=== PATIENT | female | born 1970 | race Two or more races ===

== ENCOUNTER 2021-06-06 12:28 | Inpatient (IN) | payer SELFPAY ==
[~2021-06-06] VITALS: Ht 162.6 cm; Wt 62.8 kg
--- NOTE | 2021-06-06 13:10 | NUR ---
pt is refusing to have vital signs taken.
--- NOTE | 2021-06-06 13:15 | NUR ---
[id number]/PD from [facility], verbally combative, uncooperative pilot captain. PT REFUSING TO ANSWER QUESTIONS. PT HYPERVERBAL TALKING TO SELF. RR EVEN & UNLABORED, NAD NOTED AT THIS TIME. AWAITING EVAL BY ERMD. KERR AT BS.
--- NOTE | 2021-06-06 15:42 | NUR ---
SS Consult: SW attempted to meet with pt. for interview. Pt. Is a Black female. Pt. does not demonstrate adequate insight to the reason for hospitalization. Per pt., she is not sick, and nothing is wrong with her. Per pt., she was brought to hospital by ambulance. Pt. reported that she does not know why she is hospitalized. SW asked for pt.'s name and pt. stated: "You can call me anything you want." SW asked for age and , pt. reported that she does not have a memory. Pt. was oriented x2, and alert. During interview, pt. was capable of following directions, made appropriate eye-contact, but appeared unkept. Evidenced by: dirty hospital gown, poor hygiene. Pt. reported having no memory, but pt. was cooperative with a few questions. SW explored pt.'s Hx of mental health and substance abuse. Pt. reported no Hx of mental health, SI/HI, denied AH/VH, paranoia or delusions. SW explored pt.'s living situation. Per pt., [facility] [no contact information provided]. Pt. reported that she can go there whenever needs to. Per pt., she will return to [facility] once she leaves the hospital. Plan: SW provided available resources and pt. denied at the time. SW left homeless resources and homeless waiver in pt.'s chart. Once discharge, per pt., she wants to return to [facility]. Resources Provided: Year-round shelters: [facility] [address] [place] [place] [address] ; [facility] [address] [place] [address]; [facility] Eybdcry[address] [facility] [address] Winter Shelters: Joel Scott Provider: [facility] [place] Address: [address] [place], [address] # of Beds: 47 Population Served: [facility] 6 | [facility] Hilda Hong [place] Provider: [facility] Address: [address] [facility], [address] # of Beds: 66 Population Served: [employer] [employer] [place] Provider: [facility] Address: [address] [facility], [address] # of Beds: 56 Population Served: [facility] Lazaro Scott Provider: [facility] Address: [address] [facility], [address] # of Beds: 49 Population Served: [facility] SPA 8 | [facility] Provider: [facility] Address: [address] [facility], [address] # of Beds: 37 Population Served: [facility] Hygiene: [facility]: [address] [facility] ; [facility] [address] [facility] ; [facility] [address] [place] . Food Resources: [place] [facility] at [facility]- [address] [facility] [place] [facility] [place]; Meet Each Need with Dignity ([facility]) [address] [facility]; [facility] Food Pantry 4[address] [facility]; [facility] 8535 [facility]. Mental Health resources provided: [facility] [address] [place], [place] [phone] ; [facility] Mental Health [place] [address], [place] [address] ; Candy Rust [facility] Mental Health [facility] [address] [place], [place] [phone] ; [facility] [address] [place], [place] [phone] Healthcare Clinics: [facility] [address], [address] [place]. [place] ; [facility] [address] [facility] [address] [place] [address]; [facility] [address] [place] [address] [phone] Counseling--Outpatient [facility] [address], [address] [place], [place] [address] (Specializes in in-depth psychotherapy for emotional distress: anxiety, depression, interpersonal conflicts, life transitions, childhood abuse) [facility] [address] [place], [place] [phone] (Assist with solving problem marital difficulties, separation & divorce, aging parents, & grief, chronic & terminal illness) [facility] [address] [place] [address] (Deal with loss & grief, anxiety, marital difficulties) Homebound/Mental Health Services [address] [facility] [address] [place] [address] (Provide in-home mental services to people who are incapable of leaving their homes) [facility] for Needs of the Elderly Senior Service/Resource Center [address] [place] [address] [facility] [address] [place], [place] [address] PSYCHIATRIC OUTPATIENT SERVICES [facility] Partial Hospitalization and Intensive Outpatient Program (Managed Care and [place] Only)[address] [facility] [phone] [facility] Partial Hospitalization and Outpatient Ybpmnko[address] [facility] [address] [place], [place] [phone] [facility] Nms[address] [facility] [address] [place], [place] [phone] [facility] Partial Hospitalization and Outpatient Pbqxkym84586 [place], [phone] Substance Abuse resources provided included: [facility] Substance Abuse Self-Helpline (SASH) ; CRI [facility]LP [address] [facility] [phone] ; [facility] [address] [facility] [address] ; [facility] [address] [facility] [address] ; [facility] [address] [facility] [address] ; [facility] [address] G[address] Wu [facility] [address] ; [facility] 909 [facility] [phone] ; [facility] Substance Abuse Helpline(SAS)[facility] ; [facility] ; [facility] [place]; [facility] [place]; [facility] [place]; [facility] Gato Wu; [facility] [place]; [facility] [place]; [facility] [place]; [facility]'s [place], [facility]. [place]; Alcoholics Anonymous -SFV; Zu-Glmg-Yhkqrxn ; Marijuana Anonymous -SFV; Narcotics Anonymous www.na.org;
--- NOTE | 2021-06-06 15:50 | NUR ---
LABS DRAWN BY BOAT CARPENTER MECHANIC & SENT TO LAB.
[2021-06-06 16:24] LABS: BASOPHILS # (AUTO) 0.1 K/uL (0.0-0.2); BASOPHILS % (AUTO) 0.8 % (0.0-2.0); EOSINOPHILS % (AUTO) 0.3 % (0.0-6.0); HEMATOCRIT 36 % (33-45); HEMOGLOBIN 11.5 g/dL (11.5-14.8); LYMPHOCYTES # (AUTO) 2.3 K/uL (0.8-4.8); LYMPHOCYTES % (AUTO) 30.7 % (20.0-44.0); MEAN CORPUSCULAR HGB CONC 32 g/dl (31.0-36.0); MEAN CORPUSCULAR VOLUME 78 fL (82-100); MONOCYTES # (AUTO) 0.9 K/uL (0.1-1.30); MONOCYTES % (AUTO) 12.2 % (2.0-12.0); NEUTROPHILS # (AUTO) 4.1 K/uL (1.8-8.9); PLATELET COUNT (AUTO) 211 K/uL (150-450); RED BLOOD CELL COUNT(AUTO) 4.61 MIL/uL (4.0-5.2); WHITE BLOOD COUNT (AUTO) 7.4 K/uL (4.3-11.0)
[2021-06-06] MEDS ORDERED: OLANZAPINE 5 MG TABLET PO ONE (16:30)
[2021-06-06] MEDS ORDERED: OLANZAPINE 10 MG VIAL IM ONE ×2 (16:30→17:55)
[2021-06-06 16:45] LABS: ALANINE AMINOTRANSFERASE 31 U/L (12-78); ALCOHOL, BLOOD < 3 mg/dL (0-0); ALKALINE PHOSPHATASE 94 U/L (46-116); ASPARTATE AMINOTRANSFERASE 28 U/L (15-37); BILIRUBIN,DIRECT 0.1 mg/dL (0.0-0.2); BILIRUBIN,TOTAL 0.4 mg/dL (0.2-1.0); CALCIUM, SERUM 9.9 mg/dL (8.5-10.1); CARBON DIOXIDE 30 mmol/L (21-32); CHLORIDE 103 mmol/L (98-107); CREATININE 1.1 mg/dL (0.6-1.3); GLUCOSE 99 mg/dL (74-106); POTASSIUM 4.9 mmol/L (3.5-5.1); SODIUM SERUM 144 mmol/L (136-145); TOTAL PROTEIN, SERUM 8.3 g/dL (6.4-8.2); UREA NITROGEN, BLOOD 24 mg/dL (7-18)
[2021-06-06 16:49] LABS: ACETAMINOPHEN < 0 ug/ml (10-30)
--- NOTE | 2021-06-06 18:15 | NUR ---
PT CALM & COOPERATIVE AT THIS TIME. WILL CONT TO MONITOR.
--- NOTE | 2021-06-07 00:31 | NUR ---
URINE COLLECTED AND SENT TO LAB
[2021-06-07 01:24] LABS: BILIRUBIN,URINE NEGATIVE (NEGATIVE); COLOR,URINE YELLOW (YELLOW); LEUKOCYTE ESTERASE ,URINE LARGE (NEGATIVE); NITRITE, URINE NEGATIVE (NEGATIVE); PROTEIN,URINE NEGATIVE (NEGATIVE); UGLUCOSE NEGATIVE (NEGATIVE); UROBILINOGEN,URINE 0.2 EU/dL (0.2)
[2021-06-07 01:55] LABS: BACTERIA,URINE Many /HPF (None Seen); SQUAMOUS EPITHELIAL CELL,UR Few /HPF (None Seen); WBC,URINE 21-50 /HPF (0-3)
[2021-06-07] MEDS ORDERED: CEPHALEXIN MONOHYDRATE 500 MG CAPSULE PO SCH (06:30)
[2021-06-07] MEDS ORDERED: CEPHALEXIN MONOHYDRATE 500 MG CAPSULE PO ONE (08:00)
--- NOTE | 2021-06-07 08:30 | NUR ---
THE PATIENT IS RECEIVED ALERT AND ORIENTED X2. DENIES PAIN. IN ROOM AIR AND DENIES SOB. RESPIRATION REGULAR AND UNLABORED. WILL CONTINUE TO MONITOR THE PATIENT.
--- NOTE | 2021-06-07 10:17 | NUR ---
PSYCH CONSULT REQUEST: LAST faxed facesheet & clincials to [facility] for psych consult. Pt. has not provided indetifying information and is on a [address] Tx[address] Dr. Richards will see pt.
--- NOTE | 2021-06-07 10:28 | NUR ---
PER PROFESSOR OF VOICE KAITLYNN, DR KOVACS WILL SEE PT
--- NOTE | 2021-06-07 11:30 | NUR ---
DR KOVACS AT THE BEDSIDE
[2021-06-07] MEDS ORDERED: HALOPERIDOL LACTATE INJ 5 MG/ML VIAL ONE (11:58)
[2021-06-07] MEDS ORDERED: OLANZAPINE 5 MG TABLET ONE (11:58)
[2021-06-07] MEDS: OLANZAPINE ZYDIS 5 MG TAB.RAPDIS PO SCH ×2 (12:00→17:00)
--- NOTE | 2021-06-08 06:07 | NUR ---
PT SLEEPING IN GURNEY. NO SIGNS OF DISTRESS NOTED. PT STILL UNCOOPERATIVE WHEN ASKING FOR NAME, HOWEVER CALM AND NON AGGRESSIVE WILL CONT TO MONITOR PT.
[2021-06-08] MEDS: OLANZAPINE ZYDIS 5 MG TAB.RAPDIS PO SCH ×2 (09:00→17:00)
[2021-06-08] MEDS ORDERED: HALOPERIDOL LACTATE INJ 5 MG/ML VIAL ONE ×2 (10:20→17:59)
[2021-06-08] MEDS: HALOPERIDOL LACTATE INJ 5 MG/ML VIAL IM PRN ×2 (10:25→18:04)
[2021-06-08] MEDS ORDERED: MAG HYDROX/AL HYDROX/SIMETH 30 ML UDC PO PRN (15:30)
[2021-06-08] MEDS ORDERED: ACETAMINOPHEN 325 MG TABLET PO PRN (15:30)
[2021-06-08] MEDS ORDERED: ONDANSETRON HCL/PF 4 MG/2 ML VIAL IVP PRN (15:30)
[2021-06-08] MEDS ORDERED: MAGNESIUM HYDROXIDE 30 ML UDC PO PRN (15:30)
[2021-06-08] MEDS ORDERED: Z GUARD REMEDY 2 OZ OINT TP PRN (15:30)
[2021-06-08] MEDS ORDERED: IV LR 1000 ML 1,000 ML IV ONE (15:30)
[2021-06-08] MEDS ORDERED: CEFTRIAXONE 1 G in IV D5W 50 ML IV ONE (15:30)
[2021-06-08] MEDS ORDERED: LORAZEPAM INJ 2 MG/ML VIAL IV PRN (15:30)
[2021-06-08 20:00] VITALS: BP 179/124
[2021-06-08] MEDS: CEFTRIAXONE 1 G in IV D5W 50 ML IV SCH (20:32)
[2021-06-09 04:00] VITALS: BP 123/75
--- NOTE | 2021-06-09 05:28 | NUR ---
RN note Admitted a 50 yr old from ER via stretcher accompanied by 2 staff in stable condition. Has a diagnosis of UTI. Vital signs wnl. No distress noted. On room air tolerating well. Alert and oriented. Verbally able to communicate needs. No complaint of pain or discomfort. Bed bath given. Needs attended. Kept clean and dry. Will endorse to next shift for continuity of care.
[2021-06-09 06:40] LABS: BASOPHILS % (AUTO) 0.2 % (0.0-2.0); EOSINOPHILS % (AUTO) 0.8 % (0.0-6.0); HEMATOCRIT 33 % (33-45); HEMOGLOBIN 10.7 g/dL (11.5-14.8); LYMPHOCYTES # (AUTO) 1.2 K/uL (0.8-4.8); LYMPHOCYTES % (AUTO) 23.3 % (20.0-44.0); MEAN CORPUSCULAR HGB CONC 33 g/dl (31.0-36.0); MEAN CORPUSCULAR VOLUME 77 fL (82-100); MONOCYTES # (AUTO) 0.7 K/uL (0.1-1.30); MONOCYTES % (AUTO) 13.1 % (2.0-12.0); NEUTROPHILS # (AUTO) 3.3 K/uL (1.8-8.9); NEUTROPHILS % (AUTO) 62.6 % (43.0-81.0); PLATELET COUNT (AUTO) 198 K/uL (150-450); RED BLOOD CELL COUNT(AUTO) 4.22 MIL/uL (4.0-5.2); WHITE BLOOD COUNT (AUTO) 5.2 K/uL (4.3-11.0)
[2021-06-09 07:00] LABS: CALCIUM, SERUM 9.1 mg/dL (8.5-10.1); POTASSIUM 3.7 mmol/L (3.5-5.1)
--- NOTE | 2021-06-09 07:30 | NUR ---
MS BOLIVAR OPENING NOTES RECEIVED PATIENT ON BED, AWAKE AND A/O X4. ON ROOM AIR TOLERATING WELL. NO SOB NOTED. NOT IN DISTRESS. WITH NO COMPLAINTS OF PAIN OR DISCOMFORT AT THIS TIME. WITH IV ACCESS AT LEFT HAND G22, SALINE LOCKED, PATENT AND INTACT. DUE MEDS GIVEN. SAFETY MEASURES IN PLACE. WITH SITTER. CALL LIGHT WITHIN REACH. BED ON LOWEST AND LOCKED POSITION, SIDE RAILS UP X2. WILL ENDORSE TO NEXT SHIFT FOR CHANDLER. Addendum: 06/09/21 at 1909 by GREG URENA RN ERROR
--- NOTE | 2021-06-09 07:30 | NUR ---
MS RN OPENING NOTES RECEIVED PATIENT ON BED, AWAKE AND A/O X4. ON ROOM AIR TOLERATING WELL. NO SOB NOTED. NOT IN DISTRESS. WITH NO COMPLAINTS OF PAIN OR DISCOMFORT AT THIS TIME. WITH IV ACCESS AT LEFT HAND G22, SALINE LOCKED, PATENT AND INTACT. SAFETY MEASURES IN PLACE. WITH SITTER. CALL LIGHT WITHIN REACH. BED ON LOWEST AND LOCKED POSITION, SIDE RAILS UP X2. WILL CONTINUE TO MONITOR.
[2021-06-09] MEDS: OLANZAPINE ZYDIS 5 MG TAB.RAPDIS PO SCH ×2 (09:00→17:00)
[2021-06-09 12:00] VITALS: BP 130/78
[2021-06-09] MEDS: CEFTRIAXONE 1 G in IV D5W 50 ML IV SCH (17:37)
--- NOTE | 2021-06-09 19:07 | NUR ---
MS RN CLOSING NOTES RECEIVED PATIENT ON BED, AWAKE AND A/O X4. ON ROOM AIR TOLERATING WELL. NO SOB NOTED. NOT IN DISTRESS. WITH NO COMPLAINTS OF PAIN OR DISCOMFORT AT THIS TIME. WITH IV ACCESS AT LEFT HAND G22, SALINE LOCKED, PATENT AND INTACT. DUE MEDS GIVEN. SAFETY MEASURES IN PLACE. WITH SITTER. CALL LIGHT WITHIN REACH. BED ON LOWEST AND LOCKED POSITION, SIDE RAILS UP X2. WILL ENDORSE TO NEXT SHIFT FOR CHANDLER.
--- NOTE | 2021-06-09 19:10 | NUR ---
RN NOTES RECEIVED REPORT FROM MORNING NURSE. PATIENT IN BED A/O X 4. WITH IV ACCESS AT L HAND PATENT FLUSHES WELL. NO SOB, NO DISTRESS NOTED. HOB ELEVATED, CALL LIGHT WITHIN REACH, BED ON LOWEST POSITION AND LOCKED. WILL MONITOR CLOSELY.
[2021-06-09 20:00] VITALS: BP 125/75
[2021-06-10 04:00] VITALS: BP 145/84
--- NOTE | 2021-06-10 06:31 | NUR ---
RN NOTES PATIENT REMAINS STABLE THE WHOLE SHIFT, NO SIGNIFICANT CHANGES IN HEALTH CONDITION THIS SHIFT. PATIENT A/O X 4 ABLE TO MAKE NEEDS KNOWN. ON ROOM AIR TOLERATING WELL SATURATION OF 99%. ALL SAFETY MEASURES IN PLACE AT ALL TIMES, HOB ELEVATED, BED ON LOWEST POSITION AND LOCKED. CALL LIGHT WITHIN REACH. ALL NEEDS ATTENDED. FREQUENT VISUAL MONITORING RENDERED. ENDORSED
[2021-06-10 06:58] LABS: CALCIUM, SERUM 8.7 mg/dL (8.5-10.1); CREATININE 0.8 mg/dL (0.6-1.3); POTASSIUM 4.1 mmol/L (3.5-5.1)
[2021-06-10 07:24] LABS: BASOPHILS % (AUTO) 0.4 % (0.0-2.0); EOSINOPHILS % (AUTO) 1.7 % (0.0-6.0); HEMATOCRIT 31 % (33-45); HEMOGLOBIN 10.4 g/dL (11.5-14.8); LYMPHOCYTES # (AUTO) 1.5 K/uL (0.8-4.8); LYMPHOCYTES % (AUTO) 38.1 % (20.0-44.0); MEAN CORPUSCULAR HGB CONC 33 g/dl (31.0-36.0); MEAN CORPUSCULAR VOLUME 77 fL (82-100); MONOCYTES # (AUTO) 0.7 K/uL (0.1-1.30); MONOCYTES % (AUTO) 16.5 % (2.0-12.0); NEUTROPHILS # (AUTO) 1.8 K/uL (1.8-8.9); NEUTROPHILS % (AUTO) 43.3 % (43.0-81.0); PLATELET COUNT (AUTO) 196 K/uL (150-450); RED BLOOD CELL COUNT(AUTO) 4.07 MIL/uL (4.0-5.2); WHITE BLOOD COUNT (AUTO) 4.1 K/uL (4.3-11.0)
--- NOTE | 2021-06-10 07:55 | NUR ---
RN OPENING NOTE RECEIVED PT IN BED. PT IS ON RA SAT 98% WITHOUT SIGNS OF LABORED BREATHING OR DISTRESS, PT IS A/OX3 WITH A DIAPER, PT HAS L UA 22G IV ACCESS PATENT AND FLUSHING WELL, SAFETY MEASURES ARE IN PLACE WITH BED LOCKED IN LOWEST POSITION X2 GUARD RAILS UP, WILL CONTINUE TO MONITOR THIS SHIFT.
[2021-06-10] MEDS: OLANZAPINE ZYDIS 5 MG TAB.RAPDIS PO SCH ×2 (09:23→16:03)
[2021-06-10 10:44] LABS: EOSINOPHILS % (MANUAL) 3 % (0-4); LYMPHOCYTES % (MANUAL) 39 % (16-48); MONOCYTES % (MANUAL) 13 % (0-11.0); NEUTROPHILS % (MANUAL) 45 (42-76)
[2021-06-10 12:00] VITALS: BP 145/84
--- NOTE | 2021-06-10 13:16 | NUR ---
patient pull iv out,refused to be reinserted,dr. xiong notified and ordered to dc clyde meds,telma no iv. Addendum: 06/10/21 at 1601 by VINAY GUZMAN RN NURSE NOTE
--- NOTE | 2021-06-10 19:26 | NUR ---
RN CLOSING NOTE RECEIVED PT IN BED. PT IS ON RA SAT 97% WITHOUT SIGNS OF LABORED BREATHING OR DISTRESS, PT IS A/OX2 WITH A DIAPER, SAFETY MEASURES ARE IN PLACE WITH BED LOCKED IN LOWEST POSITION X2 GUARD RAILS UP, WILL ENDORSE TO HOLISTIC PULSER NURSE FOR CHANDLER.
--- NOTE | 2021-06-10 19:46 | NUR ---
IN BED ALERT AND ORIENTATED ASKING ME IF i WAS TO BE HER NURSE FOR THE NIGHT. SHE IS SMILING AND REACHED OUT TO TOUCH MY ARM WHEN I WAS STANDING NEXT TO HER BED. SHE IS SMILING AND SPEECH CLEAR NOTED NO HEPLOCK AM NURSE COMMENTED SHE PULLED IT OUT AND DOESNT WANT THE NEEDLE IN HER ARM BED ALARM ON
[2021-06-10 20:00] VITALS: BP 116/77
--- NOTE | 2021-06-11 03:48 | NUR ---
CLOSING NOTES: ALERT AND ORIENTATED TO KNOWING IT IS NIGHT TIME AND SHE IS IN THE HOSPITAL AND I AM HER NURSE. SHE IS COOPERATIVE USING THE CALL LIGHT AP[PRIOP WHEN NEED TO CALL THE NURSE FOR ASSIST SHE USES THE BEDPAN AND AT TIMES INCONTINENT' SHE LAUGHS IN APPROPIATLY AND HEARD HER TALKING AND HAVING A CONVERSATION WHEN NO ONE IS IN THE ROOM NO iv ACCESS PATIENT REFUSING .
[2021-06-11 04:00] VITALS: BP 163/108
--- NOTE | 2021-06-11 07:22 | NUR ---
RN OPENING NOTES; RECEIVED PT IN BED, A/OX2, PT HAS BEEN HEARD TALKING TO SELF. PATIENT HAS A PLEASANT DEMEANOR. ABLE TO MAKE NEEDS KNOW. NO SOB, NO DISTRESS, NO C/O PAIN AT THIS TIME. ALL SAFETY MEASURES RENDERED, BED LOCKED, IN LOWEST POS. WITH CALL LIGHT WITHIN REACH.
[2021-06-11] MEDS: OLANZAPINE ZYDIS 5 MG TAB.RAPDIS PO SCH ×3 (08:02→16:15)
--- NOTE | 2021-06-11 08:06 | NUR ---
RN NOTES; PT REFUSED MORNING MEDICATION OLANZAPINE. EDUCATED REGARDING BENEFITS TO MEDICATION. NO AVAIL. PT CONTINUED TO REFUSED. WILL CONTINUE TO MONITOR.
[2021-06-11 12:00] VITALS: BP 181/105
--- NOTE | 2021-06-11 14:18 | NUR ---
"SW attempted to meet with pt. to provide resources. Pt. refused to speak or answer any questions. Pt. did not make eye-contact or acknowledge SW. SW spoke with pt.s nurse, and he mentioned that pt. is refusing everything. SW left homeless resources, homeless waiver, and tap card in pt.s chart. SW printed out directions on how to get to [facility], if pt. would want to go there after discharged. Resources Provided: Year-round shelters: [place] [address] [place] [place] [address] ; [facility] [address] [place] [address]; [facility] Lrymxpf2784 [facility] [address] Winter Shelters: Joel Bae [place] Provider: [facility] [place] Address: [address] [place], [address] # of Beds: 47 Population Served: [facility] 6 | [facility]ilda [facility] [place] Provider: [facility] Address: [address], [address] # of Beds: 66 Population Served: [facility] Holla@Me [place] Provider: [facility] Address: [address] [facility], [address] # of Beds: 56 Population Served: [facility] Lazaro [place] Provider: [facility] Address: [address] [place] [address], [address] # of Beds: 49 Population Served: [facility] 8 | [facility] Provider: [facility] Serve Address: [address] [facility], [address] # of Beds: 37 Population Served: Adam Hygiene: [place] [facility]: [address] [address] ; [facility] [facility] [address] [facility] ; [facility] [address] . Food Resources: [place] [facility] at [facility]- 0390 [facility]. [place]; Meet Each Need with Dignity ([facility]) [address] [place]; [facility] Food Pantry 4466 [facility]; [facility] 8522 [facility]. Mental Health resources provided: [facility] [address] [place], [place] [phone] ; [facility] Mental Health [place] [employer] [address] [facility] [address], [place] [address] ; [place] [facility] [address] [place] [address] ; [facility] [address] [place], [place] [phone] Healthcare Clinics: [facility] [address] [facility], [address] [place]. [place] ; [facility] [address] [facility] [address] [place] [address]; [facility] [address] [facility] [place] [address] [phone]"
--- NOTE | 2021-06-11 18:27 | NUR ---
RN CLOSING NOTES; PT IN ROOM WATCHING TV IN SUPINE POS. PT A/OX2-3. NO C/O PAIN, NO SOB NOTED, NO DISTRESS NOTED AT THIS TIME. PT REFUSED ALL MEDICATIONS, MD AWARE. PSYCH CONSULT DONE TODAY. PERFUSIONIST CONSULT DONE, PT REFUSED TO SPEAK TO MOBILE HOME INSTALLER. ALL RESOURCE EDUCATION LEFT IN PT CHART WITH BUS PASS. NO SIGNIFICANT CHANGES IN PT HEALTH STATUS. ALL SAFETY MEASURES RENDERED, BED LOCKED, IN LOWEST POS. WITH CALL LIGHT WITHIN REACH. ENDORSED TO SPRAY GUN REPAIRER HELPER IN STABLE CONDITION.
--- NOTE | 2021-06-11 19:30 | NUR ---
RN NOTE PATIENT IN BED AWAKE. ALERT AND ORIENTED X2-3, TALKING TO SELF. ON ROOM AIR, NO S/S OF RESPIRATORY DISTRESS. RESPIRATIONS EVEN AND UNLABORED. DENIES ANY PAIN OR DISCOMFORT. NO IV ACCESS, PATIENT IS REFUSING FOR INSERTION. BED LOCKED AND IN LOWEST POSITION. CALL LIGHT WITHIN REACH. ALL NEEDS ANTICIPATED.
[2021-06-11 20:00] VITALS: BP 181/105
--- NOTE | 2021-06-11 20:00 | NUR ---
RN NOTE PATIENT REFUSED VITAL SIGNS CHECK. OFFERRED X3, STILL STRONGLY REFUSED.
--- NOTE | 2021-06-12 00:52 | NUR ---
RN NOTE PATIENT RESTING IN BED COMFORTABLY. REMAINS IN STABLE CONDITION. ENDORSED TO MAYANK RN FOR CONTINUITY OF CARE.
--- NOTE | 2021-06-12 00:53 | NUR ---
RN NOTE RECEIVED PATINET IN BED RESTING,SLEEPING ALERT ORIENTED X2 ON ROOM AIR, PREVIOUS RN REPORTED SHE REFUSED TO TAKE VITAL SIGNS,SAFETY MEASURE IMPLEMENT BED IN LOW POSITON AND LOCKED,BED ALARM IS ON HEAD OF THE BED ELEVATED CONTINUE TO MONITOR.
--- NOTE | 2021-06-12 06:00 | NUR ---
RN NOTE PATIENT REFUSED TO RECEIVE CARE,CHANGE CLOTHES AND LINEN.
[2021-06-12] MEDS: OLANZAPINE ZYDIS 5 MG TAB.RAPDIS PO SCH (08:56)
--- NOTE | 2021-06-12 09:00 | NUR ---
RN NOTE GILLES REFUSED TO TAKE HER MEDS OLANZAPINE AT 9:00 AM EXPLAINED RISKS AND BENEFITS STILL REFUSED
[2021-06-12] MEDS ORDERED: SULF1TAB48 PO (10:31)
--- NOTE | 2021-06-12 11:00 | NUR ---
RN NOTE DR CANELA SEEN THE PATIENT AND DISCHARGE THE PATIENT,PATIENT REFUSED TO SIGN DISCHARGE PAPERS AND [facility].
--- NOTE | 2021-06-12 11:30 | NUR ---
RN NOTE PATIENT REFUSED TO RECEIVED CARE AND LEFT HOSPITAL IN STABLE CONDITION WITHOUT SIGN DISCHARGE PAPER.
== END 2021-06-12 11:48 | disposition home or self-care (01) | DRG 690 ==
LOC: ER 12:30 → MEDSG1 06-08 18:12
PROVIDERS: ADMIT Internal Medicine; ATTEND Family Medicine
DX: N39.0 Urinary tract infection, site not specified (principal); F41.9 Anxiety disorder, unspecified; F32.A Depression, unspecified; Z20.822 Contact with and (suspected) exposure to COVID-19; F29 Unspecified psychosis not due to a substance or known physiological condition; Z73.6 Limitation of activities due to disability; M62.81 Muscle weakness (generalized); Z59.00 Homelessness unspecified
CPT/HCPCS: 36415; 80048-TC; 80076-TC; 81001; 83735-TC; 84100-TC; 84702-TC; 85025-TC; 87081-TC; 87086-TC; C9803; G0378; G0480; J0696; J1630; J3490; J7030; J7050; J7060; J7120